=== PATIENT | male | born 1950 | race Caucasian/White ===

== ENCOUNTER → 2023-06-22 | Outpatient (CLI) | payer MEDICARE, OTHER ==
[2023-06-22 14:14] LABS: Basophils # (A) 0.09 X 10*3/uL (0.00-0.10); Basophils % (A) 1.4 %; Eosinophils # (A) 0.19 X 10*3/uL (0.04-0.35); HCT 32.1 % (39.6-50.0); HGB 9.8 d/dL (13.0-17.0); Lymphocytes # (A) 3.12 X 10*3/uL (0.90-5.00); MCH 30.2 pg (27.0-32.0); MCHC 30.5 d/dL (32.0-37.0); MCV 99.1 FL (80.0-97.0); Mean Platelet Volume 10.2 FL (9.5-12.2); Monocytes # (A) 0.89 X 10*3/uL (0.20-1.00); NRBC Per 100 WBC 0 X 10*3/uL (0.00-0.01); Neutrophils # (A) 2.07 X 10*3/uL (1.80-7.70); Neutrophils % (A) 32.4 %; Platelet Count 195 X 10*3/uL (140-440); RBC 3.24 X 10*6/uL (4.40-5.60); RDW 13.6 % (11.5-14.5); WBC 6.37 X 10*3/uL (4.50-10.00)
[2023-06-22 14:21] LABS: ALT 20 U/L (10-49); AST 23 U/L (14-35); Albumin 4.2 d/dL (3.8-4.9); Albumin/Globulin Ratio 1.75 Ratio (1.60-3.17); Alkaline Phosphatase 68 U/L (41-126); BUN/Creat Ratio 18.94 Ratio (12.00-20.00); Blood Urea Nitrogen 32.2 mg/dL (9.0-27.0); Calcium 9.3 mg/dL (8.7-10.3); Carbon Dioxide 23.5 mmol/L (21.6-31.8); Chloride 106 mmol/L (96-109); Chol/HDL Ratio 2.19 Ratio; Globulin 2.4 d/dL (1.6-3.3); Glucose 90 mg/dL (70-110); LDL Cholesterol,Calculated 54.1 mg/dL (0.0-131.0); Potassium 4.3 mmol/L (3.5-5.5); Prostate Specific Antigen 0.25 ng/mL (0.000-6.500); Sodium 141 mmol/L (135-145); Total Bilirubin 0.6 mg/dL (0.3-1.2); Total Protein 6.6 d/dL (6.2-8.2)
== END | disposition home or self-care (01) ==
LOC: LABWHC1 07:58
PROVIDERS: ATTEND Family Medicine
DX: Z00.00 Encounter for general adult medical examination without abnormal findings (principal); N40.0 Benign prostatic hyperplasia without lower urinary tract symptoms
CPT/HCPCS: 36415; 80053; 80061; 84153; 84443; 85025

== ENCOUNTER → 2024-01-21 | Outpatient (CLI) | payer MEDICARE, OTHER ==
[2024-01-21 15:53] LABS: BUN/Creat Ratio 23.17 Ratio (12.00-20.00); Blood Urea Nitrogen 53.3 mg/dL (9.0-27.0); Calcium 8.9 mg/dL (8.7-10.3); Carbon Dioxide 19.6 mmol/L (21.6-31.8); Chloride 104 mmol/L (96-109); Glucose 150 mg/dL (70-110); Potassium 5.7 mmol/L (3.5-5.5); Sodium 133 mmol/L (135-145)
== END | disposition home or self-care (01) ==
LOC: LABWHC1 12:41
PROVIDERS: ATTEND Internal Medicine
DX: N18.32 Chronic kidney disease, stage 3b (principal); Z94.2 Lung transplant status
CPT/HCPCS: 36415; 80048

== ENCOUNTER 2024-01-23 09:26 | Observation (INO) | payer MEDICARE, OTHER ==
--- NOTE | 2024-01-23 10:22 | ED ---
Recheck HPI - General Source: patient, RN notes reviewed Mode of arrival: ambulatory Limitations: no limitations <Li Parkinson - Last Filed: 01/23/24 12:01> <Zoila Dyson - Last Filed: 01/24/24 10:26> - General Chief Complaint: Recheck/Abnormal Lab/Rx Stated Complaint: Abn Labs Time Seen by Provider: 01/23/24 09:42 - History of Present Illness Initial Comments: This is a 74-year-old male with a history of chronic kidney disease and lung transplant who presents emergency department chief complaint of elevated potassium. Follows with pulmonology at [facility] where routine labs are ordered once a month where he was instructed that he an elevated potassium. Repeat labs subsequently revealed an elevated potassium but patient was instructed to report to the emergency department. The patient denies chest pain, chest pressure, palpitations, dizziness, lightheadedness, muscle aches, fatigue. Patient has a history of low hemoglobin and is currently on iron supplements. He denies use of potassium supplementation or diuretic such as Aldactone, Lasix, or HCTZ. (Li Parkinson) - Related Data Home Medications Medication Instructions Recorded Confirmed Clotrimazole/Betameth Cream 1 applic TOPICAL BID PRN 01/23/24 01/23/24 [Lotrisone] Cyclosporine, Modified 75 mg PO BID 01/23/24 01/23/24 Dapsone 100 mg PO MOWEFR 01/23/24 01/23/24 Difluprednate [Difluprednate Ophth 1 drop BOTH EYES QID 01/23/24 01/23/24 Soln] Famciclovir [Famvir] 125 mg PO DIRECTED 01/23/24 01/23/24 Famciclovir [Famvir] 500 mg PO DAILY 01/23/24 01/23/24 Famotidine [Pepcid] 20 mg PO DAILY 01/23/24 01/23/24 Ferrous Sulfate [Feosol] 325 mg PO MOWEFR 01/23/24 01/23/24 Magnesium (Unknown Dose) 1 tab PO DAILY 01/23/24 01/23/24 Multivitamins, Thera [Multivitamin 1 tab PO DAILY 01/23/24 01/23/24 (formulary)] Rosuvastatin Calcium 5 mg PO HS 01/23/24 01/23/24 Sildenafil Citrate [Sildenafil] 20 mg PO DAILY PRN 01/23/24 01/23/24 Tamsulosin [Flomax] 0.4 mg PO HS 01/23/24 01/23/24 Zolpidem Tartrate [Ambien Cr] 6.25 mg PO HS PRN 01/23/24 01/23/24 amLODIPine [Norvasc] 10 mg PO DAILY 01/23/24 01/23/24 predniSONE 5 mg PO DAILY 01/23/24 01/23/24 Allergies Allergy/AdvReac Type Severity Reaction Status Date / Time No Known Allergies Allergy Verified 01/23/24 13:42 Review of Systems ROS Other: All systems not noted in ROS Statement are negative. <Li Parkinson - Last Filed: 01/23/24 12:01> ROS Other: All systems not noted in ROS Statement are negative. <Zoila Dyson - Last Filed: 01/24/24 10:26> ROS Statement: Those systems with pertinent positive or pertinent negative responses have been documented in the HPI. Past Medical History Past Medical History: Cancer, Hypertension Additional Past Surgical History / Comment(s): double lung transplant 8 years ago (2022) Past Psychological History: No Psychological Hx Reported Smoking Status: Former smoker Past Alcohol Use History: Rare Past Drug Use History: None Reported <Li Parkinson - Last Filed: 01/23/24 12:01> General Exam Limitations: no limitations General appearance: alert, in no apparent distress Head exam: Present: atraumatic, normocephalic, normal inspection Eye exam: Present: normal appearance, PERRL, EOMI. Absent: scleral icterus, conjunctival injection, periorbital swelling ENT exam: Present: normal exam, mucous membranes moist Neck exam: Present: normal inspection. Absent: tenderness, meningismus, lymphadenopathy Respiratory exam: Present: normal lung sounds bilaterally. Absent: respiratory distress, wheezes, rales, rhonchi, stridor Cardiovascular Exam: Present: regular rate, normal rhythm, normal heart sounds. Absent: systolic murmur, diastolic murmur, rubs, gallop, clicks GI/Abdominal exam: Present: soft, normal bowel sounds. Absent: distended, tenderness, guarding, rebound, rigid Extremities exam: Present: normal inspection, full ROM, normal capillary refill. Absent: tenderness, pedal edema, joint swelling, calf tenderness Back exam: Present: normal inspection Neurological exam: Present: alert, oriented X3, CN II-XII intact Psychiatric exam: Present: normal affect, normal mood Skin exam: Present: warm, dry, intact, normal color. Absent: rash <Li Parkinson - Last Filed: 01/23/24 12:01> Course Vital Signs 01/23/24 01/23/24 01/23/24 09:28 09:43 10:00 Temperature 97.6 F Pulse Rate 82 73 Respiratory 16 18 Rate Blood Pressure 179/84 O2 Sat by Pulse 97 97 96 Oximetry 01/23/24 01/23/24 01/23/24 10:07 11:00 12:00 Temperature Pulse Rate 75 74 76 Respiratory 16 14 40 H Rate Blood Pressure 150/75 122/91 148/111 O2 Sat by Pulse 97 96 96 Oximetry 01/23/24 01/23/24 01/23/24 13:00 14:00 15:00 Temperature Pulse Rate 76 84 92 Respiratory 27 H 12 9 L Rate Blood Pressure 150/71 159/78 147/76 O2 Sat by Pulse 96 Oximetry 01/23/24 01/23/24 01/23/24 15:28 15:35 15:55 Temperature 97.4 F L 98.2 F Pulse Rate 90 87 79 Respiratory 16 18 18 Rate Blood Pressure 179/84 169/83 149/82 O2 Sat by Pulse 96 96 95 Oximetry 01/23/24 01/23/24 01/23/24 16:00 16:12 16:26 Temperature Pulse Rate 86 80 74 Respiratory 37 H 18 16 Rate Blood Pressure 149/82 161/86 177/66 O2 Sat by Pulse 95 96 96 Oximetry 01/23/24 01/23/24 01/23/24 17:00 17:31 18:11 Temperature 98 F Pulse Rate 70 68 76 Respiratory 32 H 20 16 Rate Blood Pressure 145/111 130/68 173/84 O2 Sat by Pulse 96 96 98 Oximetry 01/23/24 01/23/24 20:00 22:39 Temperature Pulse Rate 86 84 Respiratory 16 19 Rate Blood Pressure 117/59 138/61 O2 Sat by Pulse 94 L 95 Oximetry Medical Decision Making - Lab Data Result diagrams: 01/23/24 10:12 01/23/24 10:12 <Li Parkinson - Last Filed: 01/23/24 12:01> - Lab Data Result diagrams: 01/23/24 19:24 01/23/24 22:15 <Zoila Dyson Alex - Last Filed: 01/24/24 10:26> - Medical Decision Making Was pt. sent in by a medical professional or institution (, PA, [employer], urgent care, hospital, or group home...) When possible be specific @ -No Did you speak to anyone other than the patient for history (EMS, parent, family, police, friend...)? What history was obtained from this source @ -No Did you review nursing and triage notes (agree or disagree)? Why? @ -I reviewed and agree with nursing and triage notes Were old charts reviewed (outside hosp., previous admission, EMS record, old EKG, old radiological studies, urgent care reports/EKG's, group home records)? Report findings @ -Previous labs reviewed where patient was found to have a potassium of 5.7, patient has a history of chronic kidney disease with elevated BUN and creatinine. Differential Diagnosis (chest pain, altered mental status, abdominal pain women, abdominal pain men, vaginal bleeding, weakness, fever, dyspnea, syncope, headache, dizziness, GI bleed, back pain, seizure, CVA, palpatations, mental health, musculoskeletal)? @ -Differential Weakness: Hypoglycemia, shock, sepsis, hyponatremia, anemia, infection, AK, ETOH, adverse medicine reaction, overdose, stroke, this is not meant to be an all-inclusive list. EKG interpreted by me (3pts min.). completed at 942, sinus rhythm with first-degree AV block, ventricular rate 81, VA interval 219, QTc 424. No acute signs of ischemia. Paired patient EKG from today to 1 in system from October 2022 where there is noted inversion of the lateral precordial leads that is unchanged compared to today. X-rays interpreted by me (1pt min.). @ -Chest x-ray no cardiopulmonary process, COPD changes consistent with lung transplant. CT interpreted by me (1pt min.). @ -None done U/S interpreted by me (1pt. min.). @ -None done What testing was considered but not performed or refused? (CT, X-rays, U/S, labs)? Why? @ -None What meds were considered but not given or refused? Why? @ -None Did you discuss the management of the patient with other professionals (anthony berg i.e. , PA, [employer], lab, RT, psych nurse, social media editor, carcass splitter, teacher, air defense artillery officer, onsite case manager)? Give summary @ -Spoke with Dr. Rodriguez, in regard to admission to observation for low he moglobin. Patient is excepted and recommend surgery on consult due to low hemoglobin. Was smoking cessation discussed for >3mins.? @ -No Was critical care preformed (if so, how long)? @ -No Were there social determinants of health that impacted care today? How? (Homelessness, low income, unemployed, alcoholism, drug addiction, transportation, low edu. Level, literacy, decrease access to med. care, longterm, rehab)? @ -No Was there de-escalation of care discussed even if they declined (Discuss DNR or withdrawal of care, Hospice)? DNR status @ -No What co-morbidities impacted this encounter? (DM, HTN, Smoking, COPD, CAD, Cancer, CVA, ARF, Chemo, Hep., AIDS, mental health diagnosis, sleep apnea, m orbid obesity)? @ -None Was patient admitted / discharged? Hospital course, mention meds given and r oute, prescriptions, significant lab abnormalities, going to OR and other pertinent info. @ -Admitted. 34-year-old male with abnormal labs. There are no acute findings on physical examination. Patient will be evaluated via laboratory studies, chest x-ray, and EKG. EKG interpreted as above with no acute findings compared to previous. On laboratory interpretation patient noted to have a hemoglobin of 6.7, potassium 5.3 and white blood cells of 3.4. at this time, consulted internal medicine where the patient has been accepted for admission pending fecal occult testing with enteral surgery on his consult. Patient will be given a unit of packed red blood cells. Patient is in agreement with plan. Undiagnosed new problem with uncertain prognosis? @ -No Drug Therapy requiring intensive monitoring for toxicity (Heparin, Nitro, Insulin, Cardizem)? @ -No Were any procedures done? @ -No Diagnosis/symptom? @ -Low hemoglobin Acute, or Chronic, or Acute on Chronic? @ -Acute Uncomplicated (without systemic symptoms) or Complicated (systemic symptoms)? @ -Complicated Side effects of treatment? @ -No Exacerbation, Progression, or Severe Exacerbation? @ -No Poses a threat to life or bodily function? How? (Chest pain, USA, AK, pneumonia, PE, COPD, DKA, ARF, appy, cholecystitis, CVA, Diverticulitis, Homicidal, Suicidal, threat to staff... and all critical care pts) @ -potentially, unidentified source of bleeding can lead to multiorgan system dysfunction and possible . (Li Parkinson) Critical care time of 40 minutes for blood product transfusion (Zoila Dyson) - Lab Data Lab Results 01/23/24 01/23/24 01/23/24 Range/Units 10:12 10:12 10:12 WBC 3.4 L (3.8-10.6) k/uL RBC 2.10 L (4.30-5.90) m/uL Hgb 6.7 L* (13.0-17.5) gm/dL Hct 21.6 L (39.0-53.0) % MCV 103.1 H (80.0-100.0) fL MCH 32.0 (25.0-35.0) pg MCHC 31.1 (31.0-37.0) g/dL RDW 13.4 (11.5-15.5) % Plt Count 119 L (150-450) k/uL MPV 7.9 Neutrophils % 66 % Lymphocytes % 19 % Monocytes % 9 % Eosinophils % 4 % Basophils % 1 % Neutrophils # 2.2 (1.3-7.7) k/uL Lymphocytes # 0.7 L (1.0-4.8) k/uL Monocytes # 0.3 (0-1.0) k/uL Eosinophils # 0.1 (0-0.7) k/uL Basophils # 0.0 (0-0.2) k/uL Macrocytosis Slight PT 10.8 (10.0-12.5) sec INR 1.0 (<1.2) APTT 23.8 (22.0-30.0) sec Sodium 137 (137-145) mmol/L Potassium 5.3 H (3.5-5.1) mmol/L Chloride 110 H (98-107) mmol/L Carbon Dioxide 24 (22-30) mmol/L Anion Gap 3 mmol/L BUN 55 H (9-20) mg/dL Creatinine 1.99 H (0.66-1.25) mg/dL Est GFR (CKD-EPI)AfAm 37 (>60 ml/min/1.73 sqM) Est GFR (CKD-EPI)NonAf 32 (>60 ml/min/1.73 sqM) Glucose 121 H (74-99) mg/dL Calcium 8.8 (8.4-10.2) mg/dL Magnesium 2.1 (1.6-2.3) mg/dL Total Bilirubin 0.7 (0.2-1.3) mg/dL AST 29 (17-59) U/L ALT 18 (4-49) U/L Alkaline Phosphatase 72 (38-126) U/L Troponin I (0.000-0.034) ng/mL Total Protein 6.3 (6.3-8.2) g/dL Albumin 3.5 (3.5-5.0) g/dL 01/23/24 Range/Units 10:12 WBC (3.8-10.6) k/uL RBC (4.30-5.90) m/uL Hgb (13.0-17.5) gm/dL Hct (39.0-53.0) % MCV (80.0-100.0) fL MCH (25.0-35.0) pg MCHC (31.0-37.0) g/dL RDW (11.5-15.5) % Plt Count (150-450) k/uL MPV Neutrophils % % Lymphocytes % % Monocytes % % Eosinophils % % Basophils % % Neutrophils # (1.3-7.7) k/uL Lymphocytes # (1.0-4.8) k/uL Monocytes # (0-1.0) k/uL Eosinophils # (0-0.7) k/uL Basophils # (0-0.2) k/uL Macrocytosis PT (10.0-12.5) sec INR (<1.2) APTT (22.0-30.0) sec Sodium (137-145) mmol/L Potassium (3.5-5.1) mmol/L Chloride (98-107) mmol/L Carbon Dioxide (22-30) mmol/L Anion Gap mmol/L BUN (9-20) mg/dL Creatinine (0.66-1.25) mg/dL Est GFR (CKD-EPI)AfAm (>60 ml/min/1.73 sqM) Est GFR (CKD-EPI)NonAf (>60 ml/min/1.73 sqM) Glucose (74-99) mg/dL Calcium (8.4-10.2) mg/dL Magnesium (1.6-2.3) mg/dL Total Bilirubin (0.2-1.3) mg/dL AST (17-59) U/L ALT (4-49) U/L Alkaline Phosphatase (38-126) U/L Troponin I 0.020 (0.000-0.034) ng/mL Total Protein (6.3-8.2) g/dL Albumin (3.5-5.0) g/dL Disposition Is patient prescribed a controlled substance at d/c from ED?: No Decision to Admit Reason: Admit from EC Decision Date: 01/23/24 Decision Time: 11:59 <Li Parkinson - Last Filed: 01/23/24 12:01> <Zoila Dyson - Last Filed: 01/24/24 10:26> Clinical Impression: Low hemoglobin Disposition: ADMITTED IP TO THIS HOSP Condition: Good
[2024-01-23 10:53] LABS: ALT 18 U/L (4-49); AST 29 U/L (17-59); African American GFR (CKD) 37 (>60 ml/min/1.73 sqM); Albumin 3.5 g/dL (3.5-5.0); Alkaline Phosphatase 72 U/L (38-126); Anion Gap 3 mmol/L; Blood Urea Nitrogen 55 mg/dL (9-20); Calcium 8.8 mg/dL (8.4-10.2); Carbon Dioxide 24 mmol/L (22-30); Chloride 110 mmol/L (98-107); Glucose 121 mg/dL (74-99); Magnesium 2.1 mg/dL (1.6-2.3); Non-African American GFR(CKD) 32 (>60 ml/min/1.73 sqM); Partial Thromboplastin Time 23.8 sec (22.0-30.0); Potassium 5.3 mmol/L (3.5-5.1); Prothrombin Time 10.8 sec (10.0-12.5); Sodium 137 mmol/L (137-145); Total Bilirubin 0.7 mg/dL (0.2-1.3); Total Protein 6.3 g/dL (6.3-8.2)
[2024-01-23 10:54] LABS: Basophils % (A) 1 %; Eosinophils # (A) 0.1 k/uL (0-0.7); Eosinophils % (A) 4 %; HCT 21.6 % (39.0-53.0); Lymphocytes # (A) 0.7 k/uL (1.0-4.8); Lymphocytes % (A) 19 %; MCHC 31.1 g/dL (31.0-37.0); MCV 103.1 fL (80.0-100.0); Macrocytosis Slight; Mean Platelet Volume 7.9; Monocytes # (A) 0.3 k/uL (0-1.0); Monocytes % (A) 9 %; Neutrophils # (A) 2.2 k/uL (1.3-7.7); Neutrophils % (A) 66 %; Platelet Count 119 k/uL (150-450); RDW 13.4 % (11.5-15.5); WBC 3.4 k/uL (3.8-10.6)
--- NOTE | 2024-01-23 11:05 | XR ---
EXAMINATION TYPE: XR chest 2V DATE OF EXAM: 01/23/2024 10:28 AM CLINICAL INDICATION:Male, 74 years old with history of difficulty breathing; [facility] COMPARISON: 10/28/2022 TECHNIQUE: XR chest 2V Frontal and lateral views of the chest. FINDINGS: Lungs/Pleura: There is flattening of the diaphragm with increased lucency of the lungs. No evidence o f pneumothorax, pleural effusion or focal consolidation. Pulmonary vascularity: Unremarkable. Heart/mediastinum: Cardiomediastinal silhouette is unremarkable. Musculoskeletal: No acute osseous pathology. Sternotomy changes. IMPRESSION: 1. No acute cardiopulmonary disease process. 2. COPD changes.
[2024-01-23] MEDS ORDERED: NALOXONE 0.4 MG/ML 1 ML VIAL IV PRN (11:49)
[2024-01-23] MEDS ORDERED: LACTULOSE 20 GM/30 ML CUP PO PRN (13:23)
[2024-01-23] MEDS ORDERED: MELATONIN 3 MG TABLET PO PRN (13:23)
[2024-01-23] MEDS ORDERED: ONDANSETRON 4 MG/2 ML VIAL IVP PRN (13:23)
[2024-01-23] MEDS ORDERED: CALCIUM CARBONATE 500 MG CHEWABLE PO PRN (13:23)
--- NOTE | 2024-01-23 16:34 | P.HPIM ---
History of Present Illness H&P Date: 01/23/24 Chief Complaint: Elevated potassium This is a very pleasant 74-year-old patient follows with Dr. Zane Gerard. Patient underwent a lung transplant in 2014 at [facility]. His current transplant physician is . Patient was sent in because was found to have elevated potassium. In the ER he was discovered to have a hemoglobin of 6.7. Patient does get dark stools but he is on iron supplementation.. Hepatitis has been on and off. In September of this year patient did undergo EGD colonoscopy. At [facility] that was unremarkable. He is due to see them again. Patient does feel a bit dizzy lightheaded tired especially with activity. Patient's at the bedside. Denies any abdominal pain. No respiratory symptoms. Review of systems: GEN.: Tired with decreased appetite EYES: None HEENT: None NECK: None RESPIRATORY: None CARDIOVASCULAR: None GASTROINTESTINAL: None GENITOURINARY: None MUSCULOSKELETAL: None LYMPHATICS: None HEMATOLOGICAL: None PSYCHIATRY: None NEUROLOGICAL: None Social history: Retired from working on the [employer]. . Former smoker. Alcohol rarely. Physical examination: VITAL SIGNS: 97.6, 75, 16, 150/75, 97% room air GENERAL: BMI 21.6,. Resting in bed a bit tired EYES: Pupils equal. Conjunctiva pale l. HEENT: External appearance of nose and ears normal, oral cavity grossly normal. NECK: JVD not raised; masses not palpable. HEART: First and second heart sounds are normal; no edema. LUNGS: Respiratory rate normal; clear to auscultation. ABDOMEN: Soft, nontender, liver spleen not palpable, no masses palpable. PSYCH: Alert and oriented x3; mood and affect jason l. MUSCULOSKELETAL:No Clubbing/cyanosis;muscles-grossly intact NEUROLOGICAL: Cranial nerves grossly intact; no facial asymmetry, power and sensation grossly intact. LYMPHATICS: No lymph nodes palpable in the axilla and neck INVESTIGATIONS, reviewed in the clinical context: January 23, 2024: White count 3.4 hemoglobin 6.7 platelets 119 sodium 137 potassium 5.3 BUN 55 creatinine 1.99 Troponin I 0.020 Stool occult blood positive EKG tracing personally reviewed by me-sinus rhythm. Right bundle morenita block. Some flipped T waves in inferior leads. Chest x-ray film personally reviewed by me-hyperinflation. Assessment plan: -Acute symptomatic anemia. Patient does have dark stools with guaiac positive stool. Patient's had EGD colonoscopy of September of this year that was reportedly unremarkable. We do not have GI service in the hospital. A small bowel capsule study would be relevant. With Saturday also being holiday if that will not be done before at least Saturday. Will treat the patient symptomatically with the transfusion of blood. Patient can then follow-up with his diesel truck technician outpatient at [facility]. -Lung transplant in 2014. Follows at [facility]. Continue cyclosporine. Prednisone. Dapsone. -Essential hypertension Amlodipine 10 mg a day. -BPH Flomax 0.4 mg a day -Full code Care was discussed in detail with the patient and at the bedside. Questions answered. No GI service available in the hospital. Patient will follow-up with his diesel truck technician outpatient. Past Medical History Past Medical History: Cancer, Hypertension Additional Past Surgical History / Comment(s): double lung transplant 8 years ago (2022) Past Psychological History: No Psychological Hx Reported Smoking Status: Former smoker Past Alcohol Use History: Rare Past Drug Use History: None Reported Medications and Allergies Home Medications Medication Instructions Recorded Confirmed Type Clotrimazole/Betameth Cream 1 applic TOPICAL BID PRN 01/23/24 01/23/24 History [Lotrisone] Cyclosporine, Modified 75 mg PO BID 01/23/24 01/23/24 History Dapsone 100 mg PO MOWEFR 01/23/24 01/23/24 History Difluprednate [Difluprednate Ophth 1 drop BOTH EYES QID 01/23/24 01/23/24 History Soln] Famciclovir [Famvir] 125 mg PO DIRECTED 01/23/24 01/23/24 History Famciclovir [Famvir] 500 mg PO DAILY 01/23/24 01/23/24 History Famotidine [Pepcid] 20 mg PO DAILY 01/23/24 01/23/24 History Ferrous Sulfate [Feosol] 325 mg PO MOWEFR 01/23/24 01/23/24 History Magnesium (Unknown Dose) 1 tab PO DAILY 01/23/24 01/23/24 History Multivitamins, Thera [Multivitamin 1 tab PO DAILY 01/23/24 01/23/24 History (formulary)] Rosuvastatin Calcium 5 mg PO HS 01/23/24 01/23/24 History Sildenafil Citrate [Sildenafil] 20 mg PO DAILY PRN 01/23/24 01/23/24 History Tamsulosin [Flomax] 0.4 mg PO HS 01/23/24 01/23/24 History Zolpidem Tartrate [Ambien Cr] 6.25 mg PO HS PRN 01/23/24 01/23/24 History amLODIPine [Norvasc] 10 mg PO DAILY 01/23/24 01/23/24 History predniSONE 5 mg PO DAILY 01/23/24 01/23/24 History Allergies Allergy/AdvReac Type Severity Reaction Status Date / Time No Known Allergies Allergy Verified 01/23/24 13:42 Physical Exam Vitals: Vital Signs Temp Pulse Resp BP Pulse Ox 01/23/24 16:12 80 18 161/86 96 01/23/24 15:55 98.2 F 79 18 149/82 95 01/23/24 15:35 87 18 169/83 96 01/23/24 15:28 97.4 F L 90 16 179/84 96 01/23/24 13:00 76 16 159/78 97 01/23/24 10:07 75 16 150/75 97 01/23/24 09:28 97.6 F 82 16 179/84 97 Intake and Output 01/23/24 01/23/24 01/23/24 06:59 14:59 22:59 Intake Total 0 Balance 0 Intake: Blood Product 0 Unit 0 Other: Weight 58.967 kg Results CBC & Chem 7: 01/23/24 10:12 01/23/24 10:12 Labs: Abnormal Lab Results - Last 24 Hours (Table) 01/23/24 01/23/24 01/23/24 Range/Units 10:12 10:12 13:18 WBC 3.4 L (3.8-10.6) k/uL RBC 2.10 L (4.30-5.90) m/uL Hgb 6.7 L* (13.0-17.5) gm/dL Hct 21.6 L (39.0-53.0) % MCV 103.1 H (80.0-100.0) fL Plt Count 119 L (150-450) k/uL Lymphocytes # 0.7 L (1.0-4.8) k/uL Potassium 5.3 H (3.5-5.1) mmol/L Chloride 110 H (98-107) mmol/L BUN 55 H (9-20) mg/dL Creatinine 1.99 H (0.66-1.25) mg/dL Glucose 121 H (74-99) mg/dL Crossmatch See Detail
[2024-01-23] MEDS: FAMOTIDINE 20 MG TAB PO SCH (16:44)
[2024-01-23] MEDS: amLODIPine 10 MG TAB PO SCH (16:44)
[2024-01-23] MEDS: MAGNESIUM OXIDE 400 MG TAB PO SCH (16:44)
[2024-01-23] MEDS: FAMCICLOVIR 500 MG TAB PO SCH (18:03)
[2024-01-23] MEDS: predniSONE 5 MG TAB PO SCH (18:04)
[2024-01-23] MEDS: NON FORMULARY DRUG (Difluprednate [Difluprednate Ophth Soln] 5 ML Ml) BOTH EYES SCH (18:09)
[2024-01-23] MEDS: ACETAMINOPHEN TAB 325 MG TAB PO PRN (18:58)
[2024-01-23 19:31] LABS: Basophils % (A) 1 %; Eosinophils # (A) 0.2 k/uL (0-0.7); Eosinophils % (A) 2 %; HCT 35.7 % (39.0-53.0); Lymphocytes % (A) 40 %; MCH 32.3 pg (25.0-35.0); MCHC 32.1 g/dL (31.0-37.0); MCV 100.6 fL (80.0-100.0); Macrocytosis Slight; Mean Platelet Volume 7.5; Monocytes # (A) 0.7 k/uL (0-1.0); Monocytes % (A) 9 %; Neutrophils # (A) 3.4 k/uL (1.3-7.7); Neutrophils % (A) 46 %; Platelet Count 176 k/uL (150-450); RBC 3.55 m/uL (4.30-5.90); RDW 14.3 % (11.5-15.5); WBC 7.5 k/uL (3.8-10.6)
[2024-01-23 20:01] LABS: HGB 11.5 gm/dL (13.0-17.5)
[2024-01-23] MEDS: ATORVASTATIN 10 MG TAB PO SCH (21:35)
[2024-01-23] MEDS: TAMSULOSIN 0.4 MG CAP.ER.24H PO SCH (21:35)
[2024-01-23 22:47] LABS: ALT 19 U/L (4-49); AST 29 U/L (17-59); African American GFR (CKD) 41 (>60 ml/min/1.73 sqM); Albumin 3.6 g/dL (3.5-5.0); Albumin/Globulin Ratio 1.2; Alkaline Phosphatase 95 U/L (38-126); Anion Gap 4 mmol/L; Blood Urea Nitrogen 46 mg/dL (9-20); Calcium 8.9 mg/dL (8.4-10.2); Carbon Dioxide 20 mmol/L (22-30); Chloride 111 mmol/L (98-107); Glucose 116 mg/dL (74-99); Non-African American GFR(CKD) 35 (>60 ml/min/1.73 sqM); Potassium 5.2 mmol/L (3.5-5.1); Sodium 135 mmol/L (137-145); Total Bilirubin 1.1 mg/dL (0.2-1.3); Total Protein 6.6 g/dL (6.3-8.2)
[2024-01-24] MEDS: ZOLPIDEM 5 MG TAB PO PRN (01:34)
[2024-01-24 02:53] VITALS: RESP 16; TEMP 97.8
[2024-01-24 08:07] VITALS: BP 168/79; PULSE 82
--- NOTE | 2024-01-24 09:01 | P.GSCN ---
History of Present Illness Consult date: 01/24/24 Reason for Consult: GI bleed History of present illness: 74-year-old male presents because of elevated potassium. Additionally patient was found to have low hemoglobin in the ER. Patient does have dark stools but states he is taking iron. Patient was hospitalized earlier this year twice and had endoscopic workup performed at [facility]. Patient is a lung transplant patient. Follows up with [facility] quite often. Apparently he has another appointment with GI to see them in April. After 1 unit patient's hemoglobin went from 6.7-11.5. Certainly some lab error suspected. Patient feels well. He is fully dressed. He states he is going home today. No pain. Heme positive stools. Review of Systems The patient denies any acute changes in vision or hearing, no dysphagia or odynophagia, no chest pain or shortness of breath, no dysuria or hematuria, no headache, no runny nose, no rectal bleeding, no unexplained weight loss Past Medical History Past Medical History: Cancer, Hypertension History of Any Multi-Drug Resistant Organisms: None Reported Additional Past Surgical History / Comment(s): double lung transplant 8 years ago (2022) Smoking Status: Former smoker Medications and Allergies Home Medications Medication Instructions Recorded Confirmed Type Clotrimazole/Betameth Cream 1 applic TOPICAL BID PRN 01/23/24 01/23/24 History [Lotrisone] Cyclosporine, Modified 75 mg PO BID 01/23/24 01/23/24 History Dapsone 100 mg PO MOWEFR 01/23/24 01/23/24 History Difluprednate [Difluprednate Ophth 1 drop BOTH EYES QID 01/23/24 01/23/24 History Soln] Famciclovir [Famvir] 125 mg PO DIRECTED 01/23/24 01/23/24 History Famciclovir [Famvir] 500 mg PO DAILY 01/23/24 01/23/24 History Famotidine [Pepcid] 20 mg PO DAILY 01/23/24 01/23/24 History Ferrous Sulfate [Feosol] 325 mg PO MOWEFR 01/23/24 01/23/24 History Magnesium (Unknown Dose) 1 tab PO DAILY 01/23/24 01/23/24 History Multivitamins, Thera [Multivitamin 1 tab PO DAILY 01/23/24 01/23/24 History (formulary)] Rosuvastatin Calcium 5 mg PO HS 01/23/24 01/23/24 History Sildenafil Citrate [Sildenafil] 20 mg PO DAILY PRN 01/23/24 01/23/24 History Tamsulosin [Flomax] 0.4 mg PO HS 01/23/24 01/23/24 History Zolpidem Tartrate [Ambien Cr] 6.25 mg PO HS PRN 01/23/24 01/23/24 History amLODIPine [Norvasc] 10 mg PO DAILY 01/23/24 01/23/24 History predniSONE 5 mg PO DAILY 01/23/24 01/23/24 History Allergies Allergy/AdvReac Type Severity Reaction Status Date / Time No Known Allergies Allergy Verified 01/23/24 13:42 Surgical - Exam Vital Signs Temp Pulse Resp BP Pulse Ox 97.6 F 82 16 179/84 97 01/23/24 09:28 01/23/24 09:28 01/23/24 09:28 01/23/24 09:28 01/23/24 09:28 Physical exam: General: Well-developed, well-nourished HEENT: Normocephalic, sclerae nonicteric Abdomen: Nontender, nondistended Extremities: No edema Neuro: Alert and oriented Results - Labs 01/23/24 19:24 01/23/24 22:15 Abnormal Lab Results - Last 24 Hours (Table) 01/23/24 01/23/24 01/23/24 Range/Units 10:12 10:12 13:18 WBC 3.4 L (3.8-10.6) k/uL RBC 2.10 L (4.30-5.90) m/uL Hgb 6.7 L* (13.0-17.5) gm/dL Hct 21.6 L (39.0-53.0) % MCV 103.1 H (80.0-100.0) fL Plt Count 119 L (150-450) k/uL Lymphocytes # 0.7 L (1.0-4.8) k/uL Sodium (137-145) mmol/L Potassium 5.3 H (3.5-5.1) mmol/L Chloride 110 H (98-107) mmol/L Carbon Dioxide (22-30) mmol/L BUN 55 H (9-20) mg/dL Creatinine 1.99 H (0.66-1.25) mg/dL Glucose 121 H (74-99) mg/dL Crossmatch See Detail 01/23/24 01/23/24 Range/Units 19:24 22:15 WBC (3.8-10.6) k/uL RBC 3.55 L (4.30-5.90) m/uL Hgb 11.5 L D (13.0-17.5) gm/dL Hct 35.7 L (39.0-53.0) % MCV 100.6 H (80.0-100.0) fL Plt Count (150-450) k/uL Lymphocytes # (1.0-4.8) k/uL Sodium 135 L (137-145) mmol/L Potassium 5.2 H (3.5-5.1) mmol/L Chloride 111 H (98-107) mmol/L Carbon Dioxide 20 L (22-30) mmol/L BUN 46 H (9-20) mg/dL Creatinine 1.85 H (0.66-1.25) mg/dL Glucose 116 H (74-99) mg/dL Crossmatch Diabetes panel 01/23/24 01/23/24 Range/Units 10:12 22:15 Sodium 137 135 L (137-145) mmol/L Potassium 5.3 H 5.2 H (3.5-5.1) mmol/L Chloride 110 H 111 H (98-107) mmol/L Carbon Dioxide 24 20 L (22-30) mmol/L BUN 55 H 46 H (9-20) mg/dL Creatinine 1.99 H 1.85 H (0.66-1.25) mg/dL Glucose 121 H 116 H (74-99) mg/dL Calcium 8.8 8.9 (8.4-10.2) mg/dL AST 29 29 (17-59) U/L ALT 18 19 (4-49) U/L Alkaline Phosphatase 72 95 (38-126) U/L Total Protein 6.3 6.6 (6.3-8.2) g/dL Albumin 3.5 3.6 (3.5-5.0) g/dL Calcium panel 01/23/24 01/23/24 Range/Units 10:12 22:15 Calcium 8.8 8.9 (8.4-10.2) mg/dL Albumin 3.5 3.6 (3.5-5.0) g/dL Pituitary panel 01/23/24 01/23/24 Range/Units 10:12 22:15 Sodium 137 135 L (137-145) mmol/L Potassium 5.3 H 5.2 H (3.5-5.1) mmol/L Chloride 110 H 111 H (98-107) mmol/L Carbon Dioxide 24 20 L (22-30) mmol/L BUN 55 H 46 H (9-20) mg/dL Creatinine 1.99 H 1.85 H (0.66-1.25) mg/dL Glucose 121 H 116 H (74-99) mg/dL Calcium 8.8 8.9 (8.4-10.2) mg/dL Adrenal panel 01/23/24 01/23/24 Range/Units 10:12 22:15 Sodium 137 135 L (137-145) mmol/L Potassium 5.3 H 5.2 H (3.5-5.1) mmol/L Chloride 110 H 111 H (98-107) mmol/L Carbon Dioxide 24 20 L (22-30) mmol/L BUN 55 H 46 H (9-20) mg/dL Creatinine 1.99 H 1.85 H (0.66-1.25) mg/dL Glucose 121 H 116 H (74-99) mg/dL Calcium 8.8 8.9 (8.4-10.2) mg/dL Total Bilirubin 0.7 1.1 (0.2-1.3) mg/dL AST 29 29 (17-59) U/L ALT 18 19 (4-49) U/L Alkaline Phosphatase 72 95 (38-126) U/L Total Protein 6.3 6.6 (6.3-8.2) g/dL Albumin 3.5 3.6 (3.5-5.0) g/dL Assessment and Plan (1) Low hemoglobin Narrative/Plan: 74-year-old male with anemia that sounds to be subacute in nature. No active bleeding suspected at this time. Recent endoscopic workup at [facility] was normal. No plans for repeat endoscopy at this time. Consider repeat CBC given the anomaly in the lab work noted. Stable for discharge from my point of view if hemoglobin stable. Continue antiacids postdischarge. Current Visit: Yes Status: Acute Code(s): D64.9 - ANEMIA, UNSPECIFIED SNOMED Code(s): 964085270
[2024-01-24] MEDS: DAPSONE 25 MG TAB PO SCH (09:53)
[2024-01-24] MEDS: FERROUS SULFATE 325 MG TAB PO SCH (09:53)
[2024-01-24 10:39] LABS: Basophils # (A) 0.04 X 10*3/uL (0.00-0.10); Basophils % (A) 0.6 %; Eosinophils # (A) 0.11 X 10*3/uL (0.04-0.35); Eosinophils % (A) 1.6 %; HCT 37.5 % (39.6-50.0); HGB 12.2 g/dL (13.0-17.0); Lymphocytes # (A) 2.32 X 10*3/uL (0.90-5.00); Lymphocytes % (A) 33.2 %; MCH 32.3 pg (27.0-32.0); MCHC 32.5 g/dL (32.0-37.0); MCV 99.2 FL (80.0-97.0); Mean Platelet Volume 9.8 FL (9.5-12.2); Monocytes # (A) 0.79 X 10*3/uL (0.20-1.00); Monocytes % (A) 11.3 %; NRBC Per 100 WBC 0 X 10*3/uL (0.00-0.01); Neutrophils % (A) 52.9 %; Platelet Count 182 X 10*3/uL (140-440); RBC 3.78 X 10*6/uL (4.40-5.60); RDW 14.6 % (11.5-14.5); WBC 6.99 X 10*3/uL (4.50-10.00)
[2024-01-24 11:32] LABS: INR 1.05 sec (0.93-1.11); Prothrombin Time 11.3 sec (9.9-11.9)
[2024-01-24 15:08] LABS: HGB 6.7 gm/dL (13.0-17.5)
--- NOTE | 2024-01-24 16:12 | P.DS ---
Providers Date of admission: 01/23/24 11:58 Expected date of discharge: 01/24/24 Attending physician: Robert Rodriguez Consults: 01/23/24 11:49 Consult Physician Stat Consulting Provider: Hany Stallings Reason/Comments: low hgb Do you want consulting provider notified?: Yes Primary care physician: Zane Rodriguezkas [facility] Course: Chief Complaint: Elevated potassium This is a very pleasant 74-year-old patient follows with Dr. Zane Gerard. Patient underwent a lung transplant in 2014 at [facility]. His current transplant physician is . Patient was sent in because was found to have elevated potassium. In the ER he was discovered to have a hemoglobin of 6.7. Patient does get dark stools but he is on iron supplementation.. Hepatitis has been on and off. In September of this year patient did undergo EGD colonoscopy. At [facility] that was unremarkable. He is due to see them again. Patient does feel a bit dizzy lightheaded tired especially with activity. Patient's at the bedside. Denies any abdominal pain. No respiratory symptoms. January 24, 2024: Patient received a unit of blood. Doing much better today. Up and about in the hallway. No dizziness no lightheadedness. Lengthy discussion was held with the patient and . 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 Will get his blood work checked next week early. Renal diet. Discussion and discharge planning more than 35 minutes Social history: Retired from working on the foundry. . Former smoker. Alcohol rarely. Physical examination: VITAL SIGNS: 97.8, 82, 16, 168 x 79, 96% room air GENERAL: Up in chair, comfortable EYES: Pupils equal. Conjunctiva pale l. HEENT: External appearance of nose and ears normal, oral cavity grossly normal. NECK: JVD not raised; masses not palpable. HEART: First and second heart sounds are normal; no edema. LUNGS: Respiratory rate normal; clear to auscultation. ABDOMEN: Soft, nontender, liver spleen not palpable, no masses palpable. PSYCH: Alert and oriented x3; mood and affect jason l. MUSCULOSKELETAL:No Clubbing/cyanosis;muscles-grossly intact INVESTIGATIONS, reviewed in the clinical context: January 24, 2024: White count 6.9 hemoglobin 12.2 potassium 5.2 BUN 46 creatinine 1.85 January 23, 2024: White count 3.4 hemoglobin 6.7 platelets 119 sodium 137 potassium 5.3 BUN 55 creatinine 1.99 Troponin I 0.020 Stool occult blood positive EKG tracing personally reviewed by me-sinus rhythm. Right bundle morenita block. Some flipped T waves in inferior leads. Chest x-ray film personally reviewed by me-hyperinflation. Assessment plan: -Acute symptomatic anemia. Patient does have dark stools with guaiac positive stool. Patient's had EGD colonoscopy of September of this year that was reportedly unremarkable. We do not have GI service in the hospital. A small bowel capsule study would be relevant. With Saturday also being holiday if that will not be done before at least Saturday. Patient received a unit of blood follow-up with his contractor field hauling outpatient at [facility]. -Lung transplant in 2014. Follows at [facility]. Continue cyclosporine. Prednisone. Dapsone. -Essential hypertension Amlodipine 10 mg a day -Chronic kidney disease stage III likely nephrosclerosis Patient to follow-up with nephrology outpatient Renal diet -Hyperkalemia secondary to chronic kidney disease Renal diet. -BPH Flomax 0.4 mg a day -Full code Disposition: Home Past Medical History Past Medical History: Cancer, Hypertension Additional Past Surgical History / Comment(s): double lung transplant 8 years ago (2022) Past Psychological History: No Psychological Hx Reported Smoking Status: Former smoker Past Alcohol Use History: Rare Past Drug Use History: None Reported Plan - Discharge Summary Discharge Rx Participant: Yes New Discharge Prescriptions: Continue Tamsulosin [Flomax] 0.4 mg PO HS Difluprednate [Difluprednate Ophth Soln] 1 drop BOTH EYES QID Famotidine [Pepcid] 20 mg PO DAILY Dapsone 100 mg PO MOWEFR Sildenafil Citrate 20 mg PO DAILY PRN PRN Reason: Hypertension Zolpidem Tartrate [Ambien Cr] 6.25 mg PO HS PRN PRN Reason: Insomnia Famciclovir [Famvir] 500 mg PO DAILY Multivitamins, Thera [Multivitamin (formulary)] 1 tab PO DAILY Ferrous Sulfate [Iron (65 MG Elemental)] 325 mg PO MOWEFR Cyclosporine, Modified 75 mg PO BID Clotrimazole/Betameth Cream [Lotrisone] 1 applic TOPICAL BID PRN PRN Reason: Skin Irritation amLODIPine [Norvasc] 10 mg PO DAILY Rosuvastatin Calcium 5 mg PO HS Famciclovir [Famvir] 125 mg PO DIRECTED predniSONE 5 mg PO DAILY Magnesium (Unknown Dose) 1 tab PO DAILY Discharge Medication List Clotrimazole/Betameth Cream [Lotrisone] 1 applic TOPICAL BID PRN 01/23/24 [History] Cyclosporine, Modified 75 mg PO BID 01/23/24 [History] Dapsone 100 mg PO MOWEFR 01/23/24 [History] Difluprednate [Difluprednate Ophth Soln] 1 drop BOTH EYES QID 01/23/24 [History] Famciclovir [Famvir] 125 mg PO DIRECTED 01/23/24 [History] Famciclovir [Famvir] 500 mg PO DAILY 01/23/24 [History] Famotidine [Pepcid] 20 mg PO DAILY 01/23/24 [History] Ferrous Sulfate [Iron (65 MG Elemental)] 325 mg PO MOWEFR 01/23/24 [History] Magnesium (Unknown Dose) 1 tab PO DAILY 01/23/24 [History] Multivitamins, Thera [Multivitamin (formulary)] 1 tab PO DAILY 01/23/24 [History] Rosuvastatin Calcium 5 mg PO HS 01/23/24 [History] Sildenafil Citrate 20 mg PO DAILY PRN 01/23/24 [History] Tamsulosin [Flomax] 0.4 mg PO HS 01/23/24 [History] Zolpidem Tartrate [Ambien Cr] 6.25 mg PO HS PRN 01/23/24 [History] amLODIPine [Norvasc] 10 mg PO DAILY 01/23/24 [History] predniSONE 5 mg PO DAILY 01/23/24 [History] Follow up Appointment(s)/Referral(s): Zane Gerard MD [Primary Care Provider] - 1 Week (The office will call you with an appointment time and date.) Activity/Diet/Wound Care/Special Instructions: f/u with own doctors at [facility] Discharge Disposition: HOME SELF-CARE
== END 2024-01-24 12:39 | disposition home or self-care (01) ==
LOC: EC 09:26 → 5NMEDONC 11:58
PROVIDERS: ADMIT Hospitalist; ATTEND Hospitalist
DX: D64.9 Anemia, unspecified (principal); R19.5 Other fecal abnormalities; I12.9 Hypertensive chronic kidney disease with stage 1 through stage 4 chronic kidney disease, or unspecified chronic kidney disease; N18.31 Chronic kidney disease, stage 3a; E87.5 Hyperkalemia; Z94.0 Kidney transplant status; K92.2 Gastrointestinal hemorrhage, unspecified; I44.0 Atrioventricular block, first degree; Z87.891 Personal history of nicotine dependence; Z79.899 Other long term (current) drug therapy
CPT/HCPCS: 36430; 99285; 36415; 93005; 86900; 86901; 80053; 83735; 84484; 85025 ×2; 85610 ×2; 85730; 86850; 86920; 82272; 71046; G0378 ×2; P9016; J7515 ×2; J7512 ×2

== ENCOUNTER → 2024-04-02 | Outpatient (CLI) | payer MEDICARE, OTHER ==
[2024-04-02 16:11] LABS: HCT 34.2 % (39.6-50.0); HGB 10.5 g/dL (13.0-17.0); MCH 32.3 pg (27.0-32.0); MCHC 30.7 g/dL (32.0-37.0); MCV 105.2 FL (80.0-97.0); Mean Platelet Volume 9.9 FL (9.5-12.2); NRBC Per 100 WBC 0 X 10*3/uL (0.00-0.01); Platelet Count 187 X 10*3/uL (140-440); RBC 3.25 X 10*6/uL (4.40-5.60); RDW 13.6 % (11.5-14.5); WBC 8.25 X 10*3/uL (4.50-10.00)
[2024-04-02 16:32] LABS: BUN/Creat Ratio 22.91 Ratio (12.00-20.00); Blood Urea Nitrogen 50.4 mg/dL (9.0-27.0); Chloride 107 mmol/L (96-109); Glucose 113 mg/dL (70-110); Potassium 4.3 mmol/L (3.5-5.5); Sodium 144 mmol/L (135-145)
[2024-04-02 16:33] LABS: ALT 22 U/L (10-49); AST 24 U/L (14-35); Albumin 3.9 g/dL (3.8-4.9); Albumin/Globulin Ratio 1.86 Ratio (1.60-3.17); Alkaline Phosphatase 84 U/L (41-126); Calcium 9.2 mg/dL (8.7-10.3); Globulin 2.1 g/dL (1.6-3.3); Magnesium 1.9 mg/dL (1.5-2.4); Phosphorus 3.9 mg/dL (2.4-5.1); Total Bilirubin 0.5 mg/dL (0.3-1.2)
[2024-04-02 16:35] LABS: Basophils # (A) 0.07 X 10*3/uL (0.00-0.10); Basophils % (A) 0.8 %; Eosinophils # (A) 0.34 X 10*3/uL (0.04-0.35); Eosinophils % (A) 4.1 %; Lymphocytes # (A) 2.42 X 10*3/uL (0.90-5.00); Lymphocytes % (A) 29.3 %; Monocytes % (A) 12.1 %; Neutrophils # (A) 4.38 X 10*3/uL (1.80-7.70); Neutrophils % (A) 53.2 %; RBC Morphology Normal (Normal)
== END | disposition home or self-care (01) ==
LOC: LABWHC1 07:10
PROVIDERS: ATTEND Internal Medicine
DX: Z51.81 Encounter for therapeutic drug level monitoring (principal); D84.9 Immunodeficiency, unspecified; Z94.2 Lung transplant status; Z79.899 Other long term (current) drug therapy
CPT/HCPCS: 36415; 80053; 80158; 83735; 84100; 85025

== ENCOUNTER → 2024-07-02 | Outpatient (CLI) | payer MEDICARE, OTHER ==
[2024-07-02 13:40] VITALS: BP 178/81; PULSE 74; RESP 18; TEMP 97.9
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
== END ==
LOC: 3 N SLEEP 13:19
PROVIDERS: ATTEND Internal Medicine
DX: G47.8 Other sleep disorders (principal); E78.5 Hyperlipidemia, unspecified; K21.9 Gastro-esophageal reflux disease without esophagitis; Z94.2 Lung transplant status; Z85.828 Personal history of other malignant neoplasm of skin
CPT/HCPCS: 99211

== ENCOUNTER 2024-07-19 19:26 | Outpatient (CLI) | payer MEDICARE, OTHER ==
--- NOTE | 2024-07-22 14:11 | P.PCN ---
Description of Procedure: POLYSOMNOGRAPHY REPORT PROCEDURE(S)/DATE(S): Polysomnography 07/19/2024 CLINICAL: Patient has been seen in the sleep center for evaluation of obstructive sleep apnea-hypopnea syndrome. Please see my consultation. Sleep study has been done for evaluation of patient breathing during the sleep. PROCEDURE: The standard montage for clinical polysomnography included the electroencephalogram, the electrooculogram, the mentalis surface electromyography and Lead II cardiography. The respiratory battery consisted of measurements of nasal/buccal air flow, pressure transducer measurements from nose, thoracic and/or abdominal effort and intercostal surface electromyography. Video monitoring has been done to check for any parasomnia events. Nocturnal oxyhemoglobin saturations were obtained by finger oximetry. Step-candelario titration with positive airway pressure was utilized to control the respiratory events, if necessary. RESULTS: During the diagnostic sleep study sleep efficiency was close to normal 86.0%. Latency to sleep onset was short 6.5 min. Sleep architecture showed s tage NI was extremely short 0.8%, Delta sleep was normal 16.0%, REM sleep was normal 29.9%. Respiratory channel showed 12 obstructive apneas, 0 mixed apneas, 36 central apneas, 140 hypopneas with lowest oxygen level 73%. Total apnea hypopnea index was 29.8. Heart rate was in the range between 57 and 65, average 60. EMG showed 0 periodic limb movements per hour with 0 micro-arousals per hour. IMPRESSIONS: 1. Moderate borderline to severe obstructive sleep apnea hypopnea syndrome. 2. No significant periodic limb movements have been documented. Please see other impressions from consultation PLAN: 1. The patient will have PAP titration for correction of respiratory abnormalities during the sleep. 2. Sleep hygiene with regular time in bed for at least 7-1/2 hours. 3. No driving if feeling sleepiness. Thank you very much for allowing me to participate in the management of your patient. Sincerely, Herbert Schofield MD, PhD, FAASM. Diplomat of [place] [employer], Sleep Medicine Board by [place] [facility] [place] cc: Zane Betancourt MD
== END 2024-07-20 06:00 | disposition home or self-care (01) ==
LOC: 3 N SLEEP 19:26
PROVIDERS: ATTEND Internal Medicine
DX: G47.33 Obstructive sleep apnea (adult) (pediatric) (principal)
CPT/HCPCS: 95810

== ENCOUNTER 2024-09-28 19:20 | Outpatient (CLI) | payer MEDICARE, OTHER ==
--- NOTE | 2024-09-30 17:51 | P.PCN ---
Description of Procedure: CLINICAL: Titration with positive air pressure has been done for correction of respiratory abnormalities during sleep. DESCRIPTION OF PROCEDURE: The standard montage for clinical polysomnography included the electroencephalogram, the electrocardiogram, the mentalis surface electromyography and Lead II cardiography. The respiratory battery consisted of measurements of nasal /buccal air flow, pressure transducer measurements from the nose, thoracic and /or abdominal effort and intercostal surface electromyography. Video monitoring has been done to check for any parasomnia events. Nocturnal oxyhemoglobin saturations were obtained by finger oximetry. Step-candelario titration with positive airway pressure was utilized to control respiratory events. Raw data of sleep recording has been reviewed and is adequate. RESULTS: Sleep efficiency was significantly decreased to 72.7%. Latency to sleep onset was normal 9.0 minutes.]. Sleep architecture showed stage N1 was normal 7.6%, Delta sleep was absent 0%, REM sleep was short 8.5%. Heart rate was minimum 54 BPM, maximum 60 BPM, average 56 BPM. EMG showed 32.6 periodic limb movements per hour with 1.3 micriarousals per hour. PAP titration have been done with CPAP up to the pressure 10 cm H2O. The best results were at the pressure 10 cm H2O. Apnea hypopnea index reduced to 0. IMPRESSION: 1. Obstructive sleep apnea hypopnea syndrome mostly on controle with PAP treatment. 2. Significant periodic limb movements have been documented. Please see other impressions from consultation. PLAN: 1. The patient will have treatment with positive air pressure equipment with the level of pressure AutoPap 5-10 cm H2O and should use it every night for the whole night. 2. I will see the patient for follow up visit to explain the results of the test, recommendations, check compliance with treatment and make any necessary adjustment related to mask fitting, pressure and humidification. 3. Sleep hygiene with regular time in bed for at least 8 hours. 4. No driving if feeling any sleepiness. 5. Please check iron profile including ferritin level. Low level of iron may increase risk for periodic limb movements Thank you very much for allowing me to participate in the management of your patient. Sincerely, Herbert Schofield MD, PhD, FAASM Diplomat of [place] [employer] Sleep Medicine Board of [place] [employer] [facility] [place] cc: Zane Betancourt MD
== END 2024-09-29 06:25 | disposition home or self-care (01) ==
LOC: 3 N SLEEP 19:20
PROVIDERS: ATTEND Internal Medicine
DX: G47.33 Obstructive sleep apnea (adult) (pediatric) (principal); G47.61 Periodic limb movement disorder
CPT/HCPCS: 95811

== ENCOUNTER → 2024-12-23 | Outpatient (CLI) | payer MEDICARE, OTHER ==
[2024-12-23 15:29] VITALS: BP 177/79; PULSE 74; RESP 16; TEMP 97.9
--- NOTE | 2024-12-23 17:42 | P.PROGSL ---
Subjective DATE: 12/23/2024 FOLLOW UP VISIT. Patient with obstructive sleep apnea hypopnea syndrome return to sleep center for follow-up visit. Recently patient had sleep study which documented obstructive sleep apnea hypopnea syndrome. Patient was initiated on PAP therapy and today is first visit after treatment was started. I explained to the patient results of sleep studies in details. He has moderate, borderline with severe obstructive sleep apnea hypopnea syndrome Patient was able to use PAP equipment about half of the nights but for short pe riod of time. He feels that the pressure is high and feels some discomfort in the chest while using CPAP. [place] sleepiness scale is 5. I checked information from PAP unit. PAP unit pressure 5-8, average 6.9 cm H2O. Usage is 53% and 0% for more then 4 hours, average 2 hours per night. Leak is 14.6 l/m, which is in acceptable range. Apnea Hypopnea Index is 6.8, which 4.0 central events and 1.6 obstructive. MEDICATIONS: Please see below GENERAL: A pleasant patient without any distress. VITAL SIGNS: Please see below, weight 132 pounds. HEENT: PERRLA, EOMI.low position of soft palate, Mallapati 3 . NECK: Supple. No JVD. LUNGS: Clear to percussion and to auscultation. Good air exchange. No wheezing or rhonchi. HEART: S1, S2 regular. ABDOMEN: Soft and nontender.[] EXTREMITIES: No clubbing or cyanosis. NEW HOME SALES CONSULTANT: Awake, alert, and oriented x3. No focal deficit. Impressions: 1. Obstructive sleep apnea-hypopnea syndrome in moderate, borderline to severe range. Patient has discomfort with using of CPAP, he feels that pressure is too high, he feels some discomfort in the chest while using CPAP. 2. History of pulmonary fibrosis. 3. Status post bilateral lung transplant. 4. Hyperlipidemia. 5. Acid reflux. 6. Status post multiple skin cancer treated surgically including skin cancer on the face which may influence with position of headgear for CPAP mask. I decreased range of the pressure in CPAP unit to the level of 4-5 cm of water, which is lowest available level of pressure. Plan: 1. Continue using PAP equipment every night for the whole night. We will extend trial period with AutoPap for another 90 days. 2. To change air filter at least 1-2 times per month. 3. PAP unit should stay lower then position of the head. 4. Advised patient to remove all remaining water from humidifier canister daily and make it dry after each usage. Refill canister with fresh distilled water before each usage. 5. Sleep hygiene with regular time in bed for at least 8 hours. 6. Precautions related to driving. No driving if feel any sleepiness. 7. I will maintain prescription for PAP supplies including mask, tube, filters. 8. Follow up visit in 1 months or earlier if patient has any problems. 9. Watching weight. Thank you very much for allowing me to participate in the management of your patient. Herbert Schofield MD, PhD, FAASM. Diplomat of [employer], Sleep Medicine Board by [employer] Cmo & President of [facility] [place] cc: Jovi Killian MD Objective - Vital Signs Vital Signs: Vital Signs Temp 97.9 F 12/23/24 15:26 Pulse 74 12/23/24 15:26 Resp 16 12/23/24 15:26 BP 177/79 12/23/24 15:26 Pulse Ox 97 12/23/24 15:26 FiO2 Intake & Output 12/22/24 12/23/24 12/23/24 18:59 06:59 18:59 Weight 59.874 kg Home Medications: Home Medications Medication Instructions Recorded Confirmed Type Clotrimazole/Betameth Cream 1 applic TOPICAL BID PRN 01/23/24 01/23/24 History [Lotrisone] Cyclosporine, Modified 75 mg PO BID 01/23/24 01/23/24 History Dapsone 100 mg PO MOWEFR 01/23/24 07/02/24 History Difluprednate [Difluprednate Ophth 1 drop BOTH EYES QID 01/23/24 07/02/24 History Soln] Famciclovir [Famvir] 125 mg PO DIRECTED 01/23/24 07/02/24 History Famciclovir [Famvir] 500 mg PO DAILY 01/23/24 07/02/24 History Famotidine [Pepcid] 20 mg PO DAILY 01/23/24 07/02/24 History Ferrous Sulfate [Iron (65 MG 325 mg PO MOWEFR 01/23/24 07/02/24 History Elemental)] Magnesium (Unknown Dose) 1 tab PO DAILY 01/23/24 07/02/24 History Multivitamins, Thera [Multivitamin 1 tab PO DAILY 01/23/24 07/02/24 History (formulary)] Rosuvastatin Calcium 5 mg PO HS 01/23/24 07/02/24 History Sildenafil Citrate 20 mg PO DAILY PRN 01/23/24 01/23/24 History Tamsulosin [Flomax] 0.4 mg PO HS 01/23/24 07/02/24 History Zolpidem Tartrate [Ambien Cr] 6.25 mg PO HS PRN 01/23/24 07/02/24 History amLODIPine [Norvasc] 10 mg PO DAILY 01/23/24 01/23/24 History predniSONE 5 mg PO DAILY 01/23/24 07/02/24 History Calcipotriene/Niacinamide [Diooxia See Rx Instructions .ROUTE .COMPLEX 07/02/24 07/02/24 History 0.005%-4% Cream] Cephalexin [Keflex] 500 mg PO BID 07/02/24 07/02/24 History guanFACINE [Tenex] 0.5 mg PO HS 07/02/24 07/02/24 History
== END ==
LOC: 3 N SLEEP 15:06
PROVIDERS: ATTEND Internal Medicine
DX: G47.33 Obstructive sleep apnea (adult) (pediatric) (principal); E78.5 Hyperlipidemia, unspecified; K21.9 Gastro-esophageal reflux disease without esophagitis; Z99.89 Dependence on other enabling machines and devices; Z87.09 Personal history of other diseases of the respiratory system; Z94.2 Lung transplant status; Z85.828 Personal history of other malignant neoplasm of skin
CPT/HCPCS: 99212

== ENCOUNTER → 2025-01-20 | Outpatient (CLI) | payer MEDICARE, OTHER ==
[2025-01-20 15:56] VITALS: BP 158/72; PULSE 64; RESP 12; TEMP 98
--- NOTE | 2025-01-20 16:57 | P.PROGSL ---
Subjective DATE: 01/20/2025 FOLLOW UP VISIT. Patient with obstructive sleep apnea hypopnea syndrome return to sleep center for follow-up visit. Information from previous visit have been reviewed. Patient is using PAP equipment every night. Patient still has episodes of chest discomfort after using CPAP, but very rarely. The patient does not have significant problems with the mask, PAP unit and humidification. [place] sleepiness scale is 3, which is normal. I checked information from PAP unit. PAP unit pressure 4-5, average 5.1 cm H2O. Usage is 90% and 27% for more then 4 hours, average 3.5 hours per night. Leak is 17.9 l/m, which is in acceptable range. Apnea Hypopnea Index is 6.0, which is borderline. MEDICATIONS have been reviewed, please see below. During physical exam: GENERAL: A pleasant patient without any distress. VITAL SIGNS: Please see below, weight is 125 lbs. HEENT: PERRLA, EOMI.low position of soft palate, Mallapati 3. NECK: Supple. No JVD. LUNGS: Clear to percussion and to auscultation. Good air exchange. No wheezing or rhonchi. HEART: S1, S2 regular. ABDOMEN: Soft and nontender.[] EXTREMITIES: No clubbing or cyanosis. CARD GAME OPERATOR: Awake, alert, and oriented x3. No focal deficit. Impressions: 1. Obstructive sleep apnea-hypopnea syndrome. Patient significantly improved his compliance comparing with previous visit from 53% to 90% and more than 4 hours from 0% to 27%. Few episodes of chest discomfort after using CPAP. 2. History of pulmonary fibrosis. 3. Status post bilateral lung transplant. 4. Hyperlipidemia. 5. Acid reflux. 6. Status post multiple skin cancer treated surgically. In AutoPap unit was changed down to CPAP with a pressure of 4 cm of water. Plan: 1. Continue using PAP equipment every night for the whole night. 2. Sleep hygiene with regular time in bed for at least 7.5-8 hours 3. PAP unit should stay lower then position of the head. 4. Advised patient to remove all remaining water from humidifier canister daily and make it dry after each usage. Refill canister with fresh distilled water before each usage. 5. Watching weight. 6. Precautions related to driving. No driving if feel any sleepiness. 7. I will maintain prescription for PAP supplies including mask, tube, filters. 8. Follow up visit in 1 months or earlier if patient has any problems. Thank you very much for allowing me to participate in the management of your patient. Herbert Schofield MD, PhD, FAASM. Diplomat of [employer], Sleep Medicine Board by [employer] Biology Department Chair of [facility] [place] Objective - Vital Signs Vital Signs: Vital Signs Temp 98 F 01/20/25 15:56 Pulse 64 01/20/25 15:56 Resp 12 01/20/25 15:56 BP 158/72 01/20/25 15:56 Pulse Ox 98 01/20/25 15:56 FiO2 Intake & Output 01/19/25 01/20/25 01/20/25 18:59 06:59 18:59 Weight 58.06 kg Home Medications: Home Medications Medication Instructions Recorded Confirmed Type Clotrimazole/Betameth Cream 1 applic TOPICAL BID PRN 01/23/24 01/23/24 History [Lotrisone] Cyclosporine, Modified 75 mg PO BID 01/23/24 01/23/24 History Dapsone 100 mg PO MOWEFR 01/23/24 07/02/24 History Difluprednate [Difluprednate Ophth 1 drop BOTH EYES QID 01/23/24 07/02/24 History Soln] Famciclovir [Famvir] 125 mg PO DIRECTED 01/23/24 07/02/24 History Famciclovir [Famvir] 500 mg PO DAILY 01/23/24 07/02/24 History Famotidine [Pepcid] 20 mg PO DAILY 01/23/24 07/02/24 History Ferrous Sulfate [Iron (65 MG 325 mg PO MOWEFR 01/23/24 07/02/24 History Elemental)] Magnesium (Unknown Dose) 1 tab PO DAILY 01/23/24 07/02/24 History Multivitamins, Thera [Multivitamin 1 tab PO DAILY 01/23/24 07/02/24 History (formulary)] Rosuvastatin Calcium 5 mg PO HS 01/23/24 07/02/24 History Sildenafil Citrate 20 mg PO DAILY PRN 01/23/24 01/23/24 History Tamsulosin [Flomax] 0.4 mg PO HS 01/23/24 07/02/24 History Zolpidem Tartrate [Ambien Cr] 6.25 mg PO HS PRN 01/23/24 07/02/24 History amLODIPine [Norvasc] 10 mg PO DAILY 01/23/24 01/23/24 History predniSONE 5 mg PO DAILY 01/23/24 07/02/24 History Calcipotriene/Niacinamide [Diooxia See Rx Instructions .ROUTE .COMPLEX 07/02/24 07/02/24 History 0.005%-4% Cream] Cephalexin [Keflex] 500 mg PO BID 07/02/24 07/02/24 History guanFACINE [Tenex] 0.5 mg PO HS 07/02/24 07/02/24 History
== END ==
LOC: 3 N SLEEP 15:10
PROVIDERS: ATTEND Internal Medicine
DX: G47.33 Obstructive sleep apnea (adult) (pediatric) (principal); E78.5 Hyperlipidemia, unspecified; K21.9 Gastro-esophageal reflux disease without esophagitis; Z87.09 Personal history of other diseases of the respiratory system; Z94.2 Lung transplant status; Z98.890 Other specified postprocedural states; Z99.89 Dependence on other enabling machines and devices
CPT/HCPCS: 99212

== ENCOUNTER → 2025-03-24 | Outpatient (CLI) | payer MEDICARE, OTHER ==
[2025-03-24 10:52] VITALS: BP 141/71; PULSE 66; RESP 18; TEMP 98.1
--- NOTE | 2025-03-24 11:25 | P.PROGSL ---
Subjective DATE: 03/24/2025 FOLLOW UP VISIT. Patient with obstructive sleep apnea hypopnea syndrome return to sleep center for follow-up visit. Information from previous visit have been reviewed. Patient has difficulties to use CPAP equipment secondary to irritation from the mask headgear on the skin. Patient has history of skin cancer. The patient does not have significant problems with the mask, PAP unit and humidification. [place] sleepiness scale is 4, which is normal. I checked information from PAP unit. PAP unit pressure 5-10, average 8.5 cm H2O. Usage is 53% and 13% for more then 4 hours, average 2 hours and 49 minutes per night. Leak is 14.4 l/m, which is in acceptable range. Apnea Hypopnea Index is 5.6, which is borderline. MEDICATIONS have been reviewed, please see below. During physical exam: GENERAL: A pleasant patient without any distress. VITAL SIGNS: Please see below, weight is 123.2 lbs. HEENT: PERRLA, EOMI.low position of soft palate, Mallapati 3. NECK: Supple. No JVD. LUNGS: Clear to percussion and to auscultation. Good air exchange. No wheezing or rhonchi. HEART: S1, S2 regular. ABDOMEN: Soft and nontender.[] EXTREMITIES: No clubbing or cyanosis. MERCHANT POLICE: Awake, alert, and oriented x3. No focal deficit. Impressions: 1. Obstructive sleep apnea-hypopnea syndrome. Patient demonstrated low compliance with treatment, respiration on CPAP practically normal. Patient has difficulties to use CPAP secondary to irritation from mask headgear is on the skin of his head. Patient has history of skin cancer in that the areas. 2. History of pulmonary fibrosis. 3. Status post bilateral lung transplant. 4. Hyperlipidemia. 5. Acid reflux. 6. Status post multiple skin cancer treated surgically. Plan: 1. Continue using PAP equipment every night for the whole night. 2. Sleep hygiene with regular time in bed for at least 7.5-8 hours 3. I was recommended patient to use cap to cover skin on his head to prevent any irritation from headgear. 4. I offered patient possibility to have evaluation by dentist to check for possibly oral appliances, but patient does not want to do that. 5. Patient does not want to consider any surgical options for treatment of obstructive sleep apnea. 6. Precautions related to driving. No driving if feel any sleepiness. 7. Follow up visit in 6 months or earlier if patient has any problems. Thank you very much for allowing me to participate in the management of your patient. Herbert Schofield MD, PhD, FAASM. Diplomat of [employer] [employer], Sleep Medicine Board by [employer] Aoc Director Combat Operations Officer of [facility] [place] cc: Jovi Killian MD Objective - Vital Signs Vital Signs: Vital Signs Temp 98.1 F 03/24/25 10:50 Pulse 66 03/24/25 10:50 Resp 18 03/24/25 10:50 BP 141/71 03/24/25 10:50 Pulse Ox 97 03/24/25 10:50 FiO2 Intake & Output 03/23/25 03/24/25 03/24/25 18:59 06:59 18:59 Weight 55.849 kg Home Medications: Home Medications Medication Instructions Recorded Confirmed Type Clotrimazole/Betameth Cream 1 applic TOPICAL BID PRN 01/23/24 02/22/25 History [Lotrisone] Cyclosporine, Modified 75 mg PO BID 01/23/24 02/22/25 History Dapsone 100 mg PO MOWEFR 01/23/24 02/22/25 History Difluprednate [Difluprednate Ophth 1 drop BOTH EYES QID 01/23/24 02/22/25 History Soln] Famciclovir [Famvir] 125 mg PO DIRECTED 01/23/24 02/22/25 History Famciclovir [Famvir] 500 mg PO DAILY 01/23/24 02/22/25 History Famotidine [Pepcid] 20 mg PO DAILY 01/23/24 02/22/25 History Ferrous Sulfate [Iron (65 MG 325 mg PO MOWEFR 01/23/24 02/22/25 History Elemental)] Magnesium (Unknown Dose) 1 tab PO DAILY 01/23/24 02/22/25 History Multivitamins, Thera [Multivitamin 1 tab PO DAILY 01/23/24 02/22/25 History (formulary)] Rosuvastatin Calcium 5 mg PO HS 01/23/24 02/22/25 History Sildenafil Citrate 20 mg PO DAILY PRN 01/23/24 02/22/25 History Tamsulosin [Flomax] 0.4 mg PO HS 01/23/24 02/22/25 History Zolpidem Tartrate [Ambien Cr] 6.25 mg PO HS PRN 01/23/24 02/22/25 History amLODIPine [Norvasc] 10 mg PO DAILY 01/23/24 02/22/25 History predniSONE 5 mg PO DAILY 01/23/24 02/22/25 History Calcipotriene/Niacinamide [Diooxia See Rx Instructions .ROUTE .COMPLEX 07/02/24 02/22/25 History 0.005%-4% Cream] Cephalexin [Keflex] 500 mg PO BID 07/02/24 02/22/25 History guanFACINE [Tenex] 0.5 mg PO HS 07/02/24 02/22/25 History
== END ==
LOC: 3 N SLEEP 10:34
PROVIDERS: ATTEND Internal Medicine
DX: G47.33 Obstructive sleep apnea (adult) (pediatric) (principal); E78.5 Hyperlipidemia, unspecified; K21.9 Gastro-esophageal reflux disease without esophagitis; Z99.89 Dependence on other enabling machines and devices; Z85.828 Personal history of other malignant neoplasm of skin; Z87.09 Personal history of other diseases of the respiratory system; Z94.2 Lung transplant status
CPT/HCPCS: 99212